=== PATIENT | male | born 1980 | race Caucasian/White ===

== ENCOUNTER 2022-01-19 11:37 | Emergency (ER) | payer OTHER, SELFPAY ==
--- NOTE | ~2022-01-19 | XR_ITS ---
XR elbow RT min 3V DATE: 01/19/2022 12:57 INDICATION: Pain. No injury. TECHNIQUE: 4 views COMPARISON: None FINDINGS: There is degenerative spurring at the elbow and there are some chronic degenerative ossicle s, consistent with osteoarthritis. No recent fracture or dislocation is detected. Posterior fat pad appears elevated which suggests elbo w joint effusion. IMPRESSION: Osteoarthritis and elbow joint effusion Reviewed, dictated and finalized at location A. BOND AGENT
--- NOTE | ~2022-01-19 | XR_ITS ---
EXAMINATION: XR md joint inject/asp w image DATE: 01/19/2022 15:23 INDICATION: Right elbow swelling and pain. TECHNIQUE: A time-out was performed to verify the patient's name, date of , and procedure to b e performed. The procedure including the risks, benefits, and alternatives was discussed with the pat ient. Risks discussed included bleeding and infection. The patient understood the risks and agreed to proceed. The skin overlying the right elbow joint was prepped and draped in usual sterile fashion. Anesthetic was administered with 1% lidocaine subcutaneously. An 18 G needle was advanced under flu oroscopic guidance into the joint. Fluid was aspirated. The needle was removed and the entry site was cleaned and dressed. There were no immediate complications. Fluoroscopy exposure time was 0.1 minut es. The total number of images was 1. FINDINGS: Real-time fluoroscopy demonstrates the needle in the right elbow joint. IMPRESSION: 1. Fluoroscopy guided right elbow joint aspiration yielding 13 mL yellow fluid. Reviewed, dictated and finalized at location A. OR CONTROL SPECIALIST
[2022-01-19 11:45] VITALS: BP 151/98; PULSE 76; RESP 18; TEMP 37; O2SAT 97
--- NOTE | 2022-01-19 12:22 | WC.ED.TRAUMA ---
HPI - Trauma General Chief Complaint: Extremity Injury, Upper Stated Complaint: elbow pain Time Seen by Provider: 01/19/22 12:18 History of Present Illness HPI narrative: Patient is a 41-year-old male with no past medical history here for evaluation of atraumatic right elbow pain and swelling over the past day. Patient states that his pain developed gradually yesterday, but worsened today. Attempted ibuprofen without relief of his symptoms. He was seen in urgent care today and was sent to the ED due to severity of pain. No fevers, chills, nausea, vomiting. Patient tells me he fractured his right elbow when he was a child but did not have surgical repair. Related Data Allergies Allergy/AdvReac Type Severity Reaction Status Date / Time No Known Allergies Allergy Unknown Verified 03/06/14 16:16 Review of Systems Review of Systems: Gen: Denies fevers or chills Eyes: Denies eye pain or visual change ENT: Denies congestion Respiratory: Denies shortness of breath or cough CV: Denies chest pain or palpitations GI: Denies abdominal pain nausea, emesis or diarrhea denies burning, urgency, frequency or hematuria Musculoskeletal: Reports right elbow pain. Neuro: Denies numbness, tingling, weakness or focal weakness Skin: Denies rash Except as documented, all other systems reviewed and negative Exam Narrative: APPEARANCE: Uncomfortable appearing, tearful Head: Normocephalic and atraumatic. EYES: PERRLA/EOMI, conjunctivae clear NOSE: No nasal drainage EARS: External ear normal in appearance THROAT: Oropharynx is clear. Mucous membranes are moist. NECK: Supple. No adenopathy, no masses. RESPIRATORY: Airway patent, respirations nonlabored. Clear to auscultation bilaterally, no rales, rhonchi, wheezing. CARDIOVASCULAR: Regular rate and rhythm without murmurs, rubs, or gallops. ABDOMINAL: Normoactive bowel sounds. Soft, nontender, nondistended. No rebound tenderness or guarding. MUSCULOSKELETAL: Holding right elbow in flexion and internal rotation. Mild swelling noted over the olecranon. Reports pain with any range of motion. NEURO: Normal speech. No focal neurologic deficits. SKIN: No break in skin integrity over elbow. Skin is warm and dry. No rashes. PSYCHIATRIC: Normal affect/mood. Course Vital Signs Vital signs: Vital Signs Temperature 98.6 F 01/19/22 11:45 Pulse Rate 76 01/19/22 11:45 Respiratory Rate 18 01/19/22 11:45 Blood Pressure 151/98 H 01/19/22 11:45 Pulse Oximetry 97 01/19/22 11:45 Oxygen Delivery Room Air 01/19/22 11:45 Temperature 98.6 F 01/19/22 11:45 Pulse Rate 76 01/19/22 11:45 Respiratory Rate 18 01/19/22 11:45 Blood Pressure 151/98 H 01/19/22 11:45 Pulse Oximetry 97 01/19/22 11:45 Oxygen Delivery Room Air 01/19/22 11:45 MDM - Trauma MDM Narrative Medical decision making narrative: 41-year-old male here for evaluation of atraumatic left elbow pain over the past day and a half. Sent from urgent care due to severity of pain. Patient arrives tearful, uncomfortable appearing, evidence of swelling of the elbow but no overlying warmth or redness. There is evidence of arthritis and joint effusion of the x-ray. This was tapped by Dr. Khan, synovial fluid reveals yellow turbid fluid, with a nucleated cell count of 8621, neutrophil 95%. No synovial crystals seen, gram stain is negative. he has no leukocytosis in blood work. His CRP is slightly elevated at 2.2, his ESR is normal at 15. Spoke with Dr. Gifford, ortho, regarding patient, reviewed imaging and cell count analysis. Feel this is unlikely to be septic arthritis given location in elbow, lack of risk factors, lack of systemic symptoms, and near normal inflammatory markers. Suspect gout or osteoarthritis as etiology of the effusion. We will plan to treat as gout with Medrol Dosepak and pain meds at home, although patient was given strict return precautions to come back to the ER if he develops a fever or ot
[2022-01-19] MEDS: HYDROcodone/acetaminophen (*CRX) 5-325 MG TABLET 1 TAB PO (12:39)
[2022-01-19 12:44] LABS: Basophils Absolute Auto 0.1 K/mm3 (0.0-0.1); Basophils Percent Auto 0.5 % (0.2-1.2); Eosinophils Absolute Auto 0.2 K/mm3 (0-0.3); Eosinophils Percent Auto 1.6 % (0-4.4); Hematocrit 44.1 % (42.0-52.0); Hemoglobin 14.7 g/dL (14.0-18.0); Immature Granulocyte Absolute 0.03 K/mm3 (0.00-0.031); Immature Granulocyte Percent A 0.3 % (0-0.5); Lymphocytes Absolute Auto 1.14 K/mm3 (0.9-3.2); Lymphocytes Percent Auto 11.5 % (18.3-44.2); Mean Corpuscular HGB Conc 33.3 g/dl (32-36); Mean Corpuscular Hemoglobin 32.1 pg (26-34); Mean Corpuscular Volume 96.3 fl (80-100); Mean Platelet Volume 10.9 fl (7.4-10.4); Monocytes Absolute Auto 0.8 K/mm3 (0.1-0.6); Monocytes Percent Auto 7.7 % (2.6-8.5); Neutrophils Absolute Auto 7.8 K/mm3 (1.3-6.7); Neutrophils Percent Auto 78.4 % (45.5-73.1); Platelet Count Result 176 k/mm3 (150-375); Red Blood Count 4.58 M/mm3 (4.6-6.20); Red Cell Distribution Width 14.5 % (11.5-14.5); White Blood Count 9.9 K/mm3 (4.5-10.0)
[2022-01-19 13:04] LABS: Alanine Aminotransferase 96 U/L (6-50); Albumin Level 4.6 g/dL (3.5-5.1); Alkaline Phosphatase 102 U/L (38-126); Anion Gap 14 mmol/L (8-16); Aspartate Amino Transferase 88 U/L (17-59); Bilirubin,Total 0.9 mg/dL (0.2-1.3); Blood Urea Nitrogen 8 mg/dL (9-20); CRP 2.2 mg/dL (<1.0); Calcium 8.8 mg/dL (8.4-10.2); Carbon Dioxide 25 mmol/L (22-30); Chloride 99 mmol/L (98-107); Estimated CRCL calculation 142 ml/min; Estimated Glomerular Filt Rate > 60; Glucose 88 mg/dL (65-110); Potassium 4.3 mmol/L (3.4-5.0); Sodium 138 mmol/L (137-145)
[2022-01-19 13:46] LABS: Erythrocyte Sedimentation Rate 15 mm/hr (0-20)
[2022-01-19] MEDS: fentaNYL CITRATE INJ (*CRX) 100 MCG/2 ML VIAL 50 MCG IV PUSH (14:53)
[2022-01-19 17:22] LABS: Appearance Synovial Fluid Turbid (Clear); Color Synovial Fluid Yellow (Colorless); Lymphocytes Synovial Fluid 1 %; Monocytes Synovial Fluid 4 %; Neutrophils Synovial Fluid 95 % (0-25); Nucleated Cell Synovial Fluid 8621 /uL (0-200); Source Synovial Fluid Synovial fluid
[2022-01-19 17:28] LABS: Crystals Synovial Fluid None Seen (None Seen)
[2022-01-19] MEDS: ONDANSETRON INJ 4 MG/2 ML VIAL IV PUSH (17:50)
[2022-01-19] MEDS: MAG HYDROX/AL HYDROX/SIMETH 30 ML UDC PO (18:06)
== END 2022-01-19 18:09 | disposition home or self-care (01) ==
PROVIDERS: Physician Assistant; Emergency Provider Emergency Medicine
DX: M25.421 Effusion, right elbow (principal)
CPT/HCPCS: 20605; 36415; 73080; 77002; 80053; 85025; 85652; 86140; 87070; 87075; 87205; 89051; 89060; 96374; 96375; 99284; A4565; A9270; J2405; J3010

== ENCOUNTER 2024-07-20 15:26 | Emergency (ER) | payer OTHER, SELFPAY ==
[2024-07-20 15:30] VITALS: BP 134/88; PULSE 89; RESP 17; TEMP 36.8; O2SAT 97
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
--- NOTE | 2024-07-20 17:12 | ED_ITS ---
HPI - Alcohol General Chief Complaint: Alcohol Stated Complaint: Wanting help with ETOH, Anxiety-poss placement Time Seen by Provider: 07/20/24 15:46 History of Present Illness HPI narrative: Patient has history of alcohol use disorder and has been wanting to quit but cannot stop feeling anxious when he tries to stop drinking, last drink was 2 hours prior to arrival here. Looking to detox. Does not have any complaints right now, denies suicidal ideation. Related Data Home Medications Medication Instructions Recorded Confirmed Last Taken Type methadone 10 mg tablet 27 mg PO DAILY 12/16/23 12/16/23 Unknown History Allergies Allergy/AdvReac Type Severity Reaction Status Date / Time No Known Allergies Allergy Unknown Verified 07/20/24 15:58 Review of Systems Review of Systems: All systems reviewed & are unremarkable except as noted in HPI and below PMFSH Family History Family History Father Alcoholism Hypertension Mother Afib Brain aneurysm Grandparent Alcoholism Heart attack Social History Social History Smoking status: Former smoker Tobacco type: e-cigarettes/vaping Alcohol intake: current Drinks per week: 20 Substance use: never Substance use type: painkillers Gender identity (if verbalized by the patient): Male Exam Narrative: EXAMINATION OF ORGAN SYSTEMS/BODY AREAS: Constitutional: Vital signs per nursing GENERAL: Does appear intoxicated and smells the alcohol. HEAD: Normal with no signs of head trauma. EYES: EOMI, conjunctiva normal ENT: Hearing grossly intact LUNGS: Nonlabored breathing. HEART: [Regular rate and rhythm] ABD: [Soft], [nontender to palpation] EXT: Normal range of motion SKIN: [No rashes or lesions.] NEURO: [Alert and oriented x 3. Speaking with clear speech] PSYCH: Labile affect Course Vital Signs Vital signs: Vital Signs Temperature 98.2 F 07/20/24 15:30 Pulse Rate 89 07/20/24 15:30 Respiratory Rate 17 07/20/24 15:30 Blood Pressure 134/88 07/20/24 15:30 Pulse Oximetry 97 07/20/24 15:30 Oxygen Delivery Room Air 07/20/24 15:30 Temperature 98.2 F 07/20/24 15:30 Pulse Rate 89 07/20/24 17:37 Respiratory Rate 20 05/15/25 17:37 Blood Pressure 131/69 07/20/24 17:37 Pulse Oximetry 100 07/20/24 17:37 Oxygen Delivery Room Air 07/20/24 15:30 MDM - Alcohol MDM Narrative Medical decision making narrative: Patient presenting here requesting help to stop drinking alcohol. He drinks constantly from waking up to bed, and when he does and he feels extremely anxious, he states he feels like his legs are throbbing with waves of need to drink alcohol. On exam he has clear speech, ambulating with steady gait, though he does smell strongly of alcohol. I did explain that unfortunately we are not a detox facility, but I did offer prescription for Librium taper to help him with trying to drinking alcohol, his mother is with him and she states that he is staying with her and she does seem to be a responsible adult who feels comfortable with helping him with the taper; I did explain to them both have to take the Librium safely over the next few days. I did also give strict return precautions and follow-up for mental health/detox services and resources. One dose of Librium given before discharge. Discharge Plan Discharge Clinical Impression: Acute anxiety, Alcohol use disorder Patient Disposition: Home Condition: Stable Instructions: Abuse of Alcohol (ED), Anxiety (ED) Additional Instructions: Please follow-up with your psychiatrist, use mental health resources if you have any thoughts of hurting herself or anyone else, or if you are not able to safely stop drinking alcohol, or anything else concerning, please come back to the hospital. Patient Language: Polish Prescriptions: New chlordiazepoxide HCl 25 mg capsule 25 mg PO Q6-12H PRN (Reason: alcohol withdrawal) Qty: 30 0RF Rx Instructions: Take 1 tabs PO q2-4 hours on day 1; 1 tab PO q4h on day 2; 1 tab PO q6h on day 3; 1 tab PO q12 on day 4; 1 tab at night on day 5. No Action methadone 10 mg tablet 27 mg PO DAILY Follow-up/Referrals: [facility] [Outside] - 1 Day Jane Acevedo APRN [Primary Care Provider] -
[2024-07-20] MEDS: chlordiazePOXIDE (*CRX) 25 MG CAPSULE PO (17:28)
[2024-07-20 17:37] VITALS: BP 131/69; PULSE 89; RESP 20; O2SAT 100
== END 2024-07-20 17:39 | disposition home or self-care (01) ==
PROVIDERS: Emergency Provider Emergency Medicine; PCP Nurse Practitioner Family
DX: F10.980 Alcohol use, unspecified with alcohol-induced anxiety disorder (principal); F41.9 Anxiety disorder, unspecified; Y90.9 Presence of alcohol in blood, level not specified; Z87.891 Personal history of nicotine dependence
CPT/HCPCS: 99283; A9270

== ENCOUNTER 2024-07-21 17:17 | Emergency (ER) | payer OTHER, SELFPAY ==
--- OUTSIDE RECORDS SUMMARY | 2024-07-21 17:20 | XMS_ITS | Data Portability ---
Author Organization [place] - [employer], Main Office Address [address] [place] [address] Assessment Encounter Date Assessment Date Assessment LastModified [...] 5/5 rotator cuff strength. Negative Chandan. Positive Hays's which causes him significant pain. Positive speed [...] referral - EVAL AND TREAT 2023 [email or web address] [facility], [address], [place], [address], 16:47:48 physical therapist referral - please contact patient to schedule 2023 024 ATHENAFAX [facility] [place] [facility], [address], [place], [address], 12:00:53 Procedures injection/ aspiration joint/burs a (PROC) 2023 024 [email or web address] In-Office Order, Internal Use Only DO Not Attach Compendium DO Not Attach Compendium, Do Not Delete/merge, 295[address] 10:17:24 Surgeries None recorded. Imaging XR, shoulder, 2 or more view 2023 024 [email or web address] [facility] [place], [address], [place], [address], 4 08:26:09 XR, knee, 4 or more view 2023 024 STANISLAW [facility] [place], [address], [place], [address], 4 00:17:25 Medication Orders Mobic 15 mg tablet [address] [facility]61780, [address], [id number], 4 16:47:48 bupivacain e HCl 0.5 % (5 mg/mL) injection solution [address] [facility]96425, [address], [id number], 4 18:27:54 Kenalog 10 mg/mL suspension for injection [address] [facility]68497, [address], [id number], 4 18:27:54 meloxicam 15 mg tablet [address] [facility]64982, [address], [id number], 4 18:27:54 Patient TargetsNo targets recorded. Patient [...] more view No observ ation record ed. [email or web address] [facility] [place] [address], [place], [address], 08/04/2023 09:51:36 10/13/19 24 XR, shoul lyla, 2 or more view No observ ation record ed. [email or web address] [facility] [place] [address], [place], [address], 10/13/2023 14:06:50 Result Notes None recorded. Problems Name Problem SNOMED Code Status Onset Date Resolution Date Notes Provider Name and Address Organization Details Recorded Time Pain of right knee joint 8492590650624 00 Active 2023 TOBIAS Lara, [employer] [facility] 4 09:51:17 Derangement of right knee 8137783714507 9109 Active 2023 TOBIAS Lara, [employer] [facility] 4 14:01:50 Osteoarthri tis of right knee joint 7162554018180 00 Active 2023 TOBIAS Lara, [employer] [facility] 4 14:01:56 Pain of left shoulder joint 2056600938591 9109 Active 2023 TOBIAS Lara, [facility] 4 14:06:57 Problem Notes None recorded. Procedures Surgical History Date Name Laterality Status Provider Name and Address Organization Details Recorded Time Ortho - Cortisone Injection completed Liban Moore MD [address] [place] [address], [address], [employer] 08/04/2023 18:00:34 Imaging Results Imaging Date Name Status LastModified by Organiz ation Details LastModified Time 08/04/2023 XR, knee, 4 or more view completed [facility] [place] [address], [place], [address], 08/04/2023 09:51:36 10/13/2023 XR, shoulder, 2 or more view completed [facility] [place] [address], [place], [address], 10/13/2023 14:06:50 Procedure Notes None recorded. Medical [...] 10 mg by injection route. 2023 active [facility]: 0003- 0494- 20 Not Available Not Available [...] Updated DateTime 08/04/2023 177.8 cm 35.9 kg/m2 005017.09 g 5 TOBIAS Lara [employer] 08/04/2023 09:49:54 Date Recorded Body height Body mass index (BMI) Body weight Pain severity - 0-10 verbal numeric rating [Score] - Reported Provider Name and Address Organization Details Last Updated DateTime 10/13/2023 177.8 cm 34.4 kg/m2 883142.17 g 5 TOBIAS Lara [employer] [facility] 10/13/2023 14:01:34 Social History Question Answer Notes LastModified by [employer] Details LastModified Time Tobacco Smoking Status Never Smoker TOBIAS Lara null, [employer] [facility] 08/04/2023 09:50:55 What Is Your Level Of Caffeine Consumption? Moderate [email or web address] Information not available 08/04/2023 What Was The Date Of Your Most Recent Tobacco Screening? 08/04/2023 [email or web address] Information not available 08/04/2023 Sex: Unknown Functional Status Question Answer Note LastModified by [employer] Details LastModified Time Do you use any illicit or recreational drugs? No [email or web address] Information not available 08/04/2023 What is your level of alcohol consumption? None [email or web address] Information not available 08/04/2023 Mental Status None recorded. Family History Relationship Description Onset Age of this Age Resolved Age Notes LastModified by Organization Details LastModified Time Father No current problems or disability [email or web address] Not available 08/03 09:50:30 Mother No current problems or disability [email or web address] Not available 08/03 09:50:30 Medical History No medical history recorded. Past Encounters Encounter ID Performer Location Encounter Start Date Encounter Closed Date Diagnosis/Indication Diagnosis SNOMED-CT Code Diagnosis ICD10 Code Diagnosis Note [id number] MD JAMES [facility] [place] [address] [place] [address] 08/04/2023 09:34:50 08/04/2023 10:39:41 Pain of right knee joint 8870962886 41209 M25.202 [id number] MD JAMES [facility] [place] [address] [place] [address] 10/13/2023 13:58:14 10/13/2023 14:51:27 Pain of left shoulder joint 7243393996 6240284 M25.512 Health Concerns Section Related Observation LastModified by Organization Detai ls LastModified Time None Recorded Concern Status LastModified by Organization Details LastModified Time None Recorded Advance Directives Directive None Recorded Payers Encounter Date Sequence Insurance Name Policy Number Policy Botello Covered Member ID Botello Member ID Guarantor Name 08/04/2023 1 [facility] (POS II) [id number] Tj Doss [id number] Tj Doss 10/13/2023 1 [facility] ([place]) [id number] Tj Doss [id number] Tj Doss
--- NOTE | 2024-07-21 17:52 | PC.NURSE ---
1730--patient asked to move off intake bench seat and have a seat in main waiting room, patient was stretched out over the bench. Patient asked several times to move and he refused-making snide comments. Patient informed that security would be called-patients said go ahead . call placed to security. when they arrived patient got up and walked out of ED-refused to talk to security or ED staff. Patient witnessed walking off property per security.
--- NOTE | 2024-07-21 18:01 | PC.NURSE ---
1950--no answer to name call for triage VS
== END 2024-07-21 19:16 | disposition left against medical advice (07) ==
PROVIDERS: PCP Nurse Practitioner Family
DX: F41.9 Anxiety disorder, unspecified (principal); F10.90 Alcohol use, unspecified, uncomplicated; Z87.891 Personal history of nicotine dependence
CPT/HCPCS: 99199

== ENCOUNTER 2024-09-26 16:56 | Emergency (ER) | payer OTHER, SELFPAY ==
[2024-09-26 16:48] VITALS: BP 148/94; PULSE 111; RESP 18; TEMP 36.6; O2SAT 92
--- OUTSIDE RECORDS SUMMARY | 2024-09-26 17:11 | XMS_ITS | Data Portability ---
Author Organization [place] - [facility] [employer], Main Office Address [address] [place] [address] Assessment Encounter Date Assessment Date Assessment LastModified [...] 5/5 rotator cuff strength. Negative Chandan. Positive Towns's which causes him significant pain. Positive speed [...] therapist referral - EVAL AND TREAT 2023 024 [email or web address] [facility] [place] [facility], [address], [place], [address], 16:47:48 physical therapist referral - please contact patient to schedule 2023 024 ATHENAFAX [facility] [place] [facility], [address], [place], [address], 12:00:53 Procedures injection/ aspiration joint/burs a (PROC) 2023 024 [email or web address] In-Office Order, Internal Use Only DO Not Attach Compendium DO Not Attach Compendium, Do Not Delete/merge, [address] 10:17:24 Surgeries None recorded. Imaging XR, shoulder, 2 or more view 2023 024 [email or web address] [facility] [place], [address], [place], [address], 4 08:26:09 XR, knee, 4 or more view 2023 024 STANISLAW [facility] [place], [address], [place], [address], 4 00:17:25 Medication Orders Mobic 15 mg tablet [address] [facility]85682, [address], [id number], 4 16:47:48 bupivacain e HCl 0.5 % (5 mg/mL) injection solution [address] [facility]41199, [address], [id number], 4 18:27:54 Kenalog 10 mg/mL suspension for injection [address] [facility]10302, [address], [id number], 4 18:27:54 meloxicam 15 mg tablet [address] [facility]39253, [address], [id number], 4 18:27:54 Patient TargetsNo targets recorded. Patient [...] more view No observ ation record ed. [email or web address] [facility] [place] [address], [place], [address], 08/04/2023 09:51:36 10/13/19 24 XR, shoul lyla, 2 or more view No observ ation record ed. [email or web address] [facility] [place] [address], [place], [address], 10/13/2023 14:06:50 Result Notes None recorded. Problems Name Problem SNOMED Code Status Onset Date Resolution Date Notes Provider Name and Address Organization Details Recorded Time Pain of right knee joint 2876292835023 00 Active 2023 TOBIAS Lara, [facility] [employer] [facility] 4 09:51:17 Derangement of right knee 1694942512531 9109 Active 2023 TOBIAS Lara, [facility] [employer] [facility] 4 14:01:50 Osteoarthri tis of right knee joint 4106717294867 00 Active 2023 TOBIAS Lara, [facility] [employer] [facility] 4 14:01:56 Pain of left shoulder joint 8875246600039 9109 Active 2023 TOBIAS Lara, [facility] [employer] [facility] 4 14:06:57 Problem Notes None recorded. Procedures Surgical History Date Name Laterality Status Provider Name and Address Organization Details Recorded Time 4 Ortho - Cortisone Injection completed Liban Moore MD [address] [place] [address], [address], [address], [facility] [employer] 08/04/2023 18:00:34 Imaging Results None recorded. Procedure Notes None recorded. Medical Equipment None [...] 10 mg by injection route. 2023 active [facility]: 0003- 0494- 20 Not Available Not Available Not Available methylpredn isolone 4 mg tablets in a dose pack FOLLOW PACKAGE DIRECTION S 08/03 completed Not Available Not Available Not Available Vitals Date Recorded Body height Body mass index (BMI) Body weight Provider Name and Address Organization Details Last Updated DateTime 08/04/2023 177.8 cm 35.9 kg/m2 143327.09 [email or web address] TOBIAS Lara [employer] [facility] [employer] 08/04/2023 09:49:41 Date Recorded Body height Body mass index (BMI) Body weight Provider Name and Address Organization Details Last Updated DateTime 10/13/2023 177.8 cm 34.4 kg/m2 394057.17 TOBIAS [place] [employer] [facility] [employer] 10/13/2023 14:01:25 Social History Question Answer Notes LastModified by Organizat ion Details LastModified Time Tobacco Smoking Status Never Smoker TOBIAS Lara [facility] [employer] [facility] 08/04/2023 09:50:55 What Is Your Level Of Caffeine Consumption? Moderate [email or web address] Information not available 08/04/2023 What Was The Date Of Your Most Recent Tobacco Screening? 08/04/2023 [email or web address] Information not available 08/04/2023 Sex: Unknown Functional Status Question Answer Note LastModified by Organizat ion Details LastModified Time Do you use any illicit or recreational drugs? No Information not available 08/04/2023 What is your level of alcohol consumption? None [email or web address] Information not available 08/04/2023 Mental Status None recorded. Family History Relationship Description Onset Age of this Age Resolved Age Notes LastModified by Organization Details LastModified Time Father No current problems or disability Not available 08/03 09:50:30 Mother No current problems or disability [email or web address] Not available 08/03 09:50:30 Medical History No medical history recorded. Past Encounters Encounter ID Performer Location Encounter Start Date Encounter Closed Date Diagnosis/Indication Diagnosis SNOMED-CT Code Diagnosis ICD10 Code Diagnosis Note [id number] Liban Moore MD [facility] [place] [address] [place] [address] 08/04/2023 09:34:50 08/04/2023 10:39:41 Pain of right knee joint 2318812368 77912 M25.695 [id number] Liban Moore MD [facility] [place] [address] [place] [address] 10/13/2023 13:58:14 10/13/2023 14:51:27 Pain of left shoulder joint 6504392662 1410129 M25.512 Health Concerns Section Related Observation LastModified by Organization Detai ls LastModified Time None Recorded Concern Status LastModified by Organization Details LastModified Time None Recorded Advance Directives Directive None Recorded Payers Insurance Date Sequence Insurance Name Policy Number Policy Botello Covered Member ID Botello Member ID Guarantor Name 10/15/2023 1 [facility] (POS II) [id number] Tj Doss [id number] Tj Doss
--- OUTSIDE RECORDS SUMMARY | 2024-09-26 17:11 | XMS_ITS ---
Author Organization [facility] Address [address] [place] [address] Care Team Providers Care Housekeeping Attendant Name Role Phone Jane Acevedo APRN Primary Care Provider Karan Woodard Unavailable [phone] Tramaine Velasco Unavailable [phone] REASON FOR VISIT ADHD Follow Up, DENIED UDT Medications Medication SIG (Take, Route, Frequency, Duration) Notes Start Date End Date Status cloNIDine HCl 0.1 MG 1 tablet Orally twice a day; Duration: 30 days As needed 08/23/2024 Active Sertraline HCl 100 MG 1 tablet Orally On ce a day; Duration: 30 days Active hydrOXYzine Pamoate 25 MG 1 capsule at bedtime as needed Orally Once a day; Duration: 30 days Active QUEtiapine Fumarate 50 MG 1 tablet once a day for 2 days, 2 tablets once a day for 28 days Orally; Duration: 30 days 09/18/2024 Active Propranolol HCl 10 MG 1 tablet Orally tw ice a day; Duration: 30 days 09/18/2024 Active Sertraline HCl 25 MG 1 tablet daily x 7 days then 2 tablets daily x 7 days Orally see sign; Duration: 14 days 08/23/2024 Active Abilify 10 MG 0.5 tablet Orally Once a day; Duration: 30 days pt has supply Active Atomoxetine HCl 80 MG 1 capsule in the morning Orally Once a day Active Social History Sex Assigned At : Social History Observation Description Sex Assigned At Male Vital Signs Blood pressure systolic 119 mm Hg 09/19/19 25 Blood pressure diastolic 83 mm Hg 025 Height 70 in 09/18/2024 Weight 189 lbs 09/18/2024 BMI 27.12 kg/m2 09/18/2024 Height-cm 177.8 cm 09/18/2024 Weight-kg 85.73 kg 09/18/2024 Encounters Encounter Location Date Provider [facility] [address] [place] [address] 09/18/2024 Tramaine Velasco Opioid abuse, in remission F11.11 ; CRISTI (generalized anxiety disorder) F41.1 ; 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.05 ; Attention and concentration deficit R41.840 and Major depressive disorder, recurrent severe without psychotic features F33.2 Assessments Encounter Date Diagnosis (ICD Code) Assessment Notes Treatment Notes Treatment Clinical Notes Section Notes 09/18/2024 Opioid abuse, in remission (ICD-10 - F11.11) 09/18/2024 CRISTI (generalized anxiety disorder) (ICD-10 - F41.1) 09/18/2024 Insomnia due to other mental disorder (ICD-10 - F51.05) 09/18/2024 Attention and concentration deficit (ICD-10 - R41.840) 09/18/2024 Major depressive disorder, recurrent severe without psychotic features (ICD-10 - F33.2) 09/18/2024 Other Tj Boyer, adult male with history of substance use disorder, presents with severe anxiety, fatigue, and dizziness after returning to work following a 2-month absence. Generalized Anxiety Disorder with Panic Attacks Assessment: Patient reports persistent, severe anxiety described as a wave over my body, accompanied by irritability, fatigue, and dizziness. Symptoms were exacerbated upon returning to work after a 2-month absence, particularly when climbing ladders. Patient experiences panic attacks with associated breathing difficulties. Recently initiated sertraline has not provided significant relief. Patient resorted to using leftover methadone (25mg for 5 days, one month ago) and alcohol to manage anxiety symptoms, indicating potential for substance use relapse. Current medication regimen, including Abilify, may be contributing to increased anxiety. Plan: - Discontinue Abilify - Start quetiapine 50mg PO at bedtime for 2 nights, then increase to 100mg PO at bedtime - Discontinue clonidine - Start propranolol 10mg PO BID PRN for anxiety - Encourage adequate hydration - Follow up in 3 weeks Attention-Deficit /Hyperactivity Disorder (ADHD) Assessment: Recent ADHD testing (September 01) indicates results consistent with ADHD, characterized by difficulties in response inhibition, maintaining consistent processing speed, and impulsivity as the core issue. However, current anxiety symptoms preclude immediate ADHD-specific treatment. Plan: - Defer ADHD treatment consideration pending improvement of anxiety symptoms - Avoid stimulant medication initiation at this time due to potential exacerbation of anxiety Substance Use Disorder (in remission with recent lapse) Assessment: Patient has a history of substance use disorder, including alcohol and methadone. Recent lapse reported with use of leftover methadone (25mg for 5 days, one month ago) and alcohol to manage anxiety and sleep difficulties. Patient denies current cravings for opiates but expresses a strong desire for anxiety relief. Plan: - Monitor for signs of substance use relapse - Address anxiety symptoms to reduce risk of self-medication Insomnia Assessment: Patient reports difficulty with sleep, which has led to self-medication with alcohol and sleeping pills. Plan: - Initiate quetiapine for dual purpose of anxiety management and sleep improvement the note is transcribed using speech recognition software. It is a reflection of a visit with the patient. It might have some inaccuracy, including medication names and transcribing errors, though efforts have been made to correct them. Plan Of Treatment Medication Medication Name Sig Start Date Stop Date Notes Sertraline HCl 100 MG 1 tablet Orally On ce a day; Duration: 30 days hydrOXYzine Pamoate 25 MG 1 capsule at b edtime as needed Orally Once a day; Duration: 30 days QUEtiapine Fumarate 50 MG 1 tablet once a day for 2 days, 2 tablets once a day for 28 days Orally; Duration: 30 days 09/18/2024 Propranolol HCl 10 MG 1 tablet Orally tw ice a day; Duration: 30 days 09/18/2024 Treatment Notes Assessment Notes Other Tj Boyer, adult male with history of substance use disorder, presents with severe anxiety, fatigue, and dizziness after returning to work following a 2-month absence. Generalized Anxiety Disorder with Panic Attacks Assessment: Patient reports persistent, severe anxiety described as a wave over my body, accompanied by irritability, fatigue, and dizziness. Symptoms were exacerbated upon returning to work after a 2-month absence, particularly when climbing ladders. Patient experiences panic attacks with associated breathing difficulties. Recently initiated sertraline has not provided significant relief. Patient resorted to using leftover methadone (25mg for 5 days, one month ago) and alcohol to manage anxiety symptoms, indicating potential for substance use relapse. Current medication regimen, including Abilify, may be contributing to increased anxiety. Plan: - Discontinue Abilify - Start quetiapine 50mg PO at bedtime for 2 nights, then increase to 100mg PO at bedtime - Discontinue clonidine - Start propranolol 10mg PO BID PRN for anxiety - Encourage adequate hydration - Follow up in 3 weeks Attention-Deficit/Hyperactivity Disorder (ADHD) Assessment: Recent ADHD testing (September 01) indicates results consistent with ADHD, characterized by difficulties in response inhibition, maintaining consistent processing speed, and impulsivity as the core issue. However, current anxiety symptoms preclude immediate ADHD-specific treatment. Plan: - Defer ADHD treatment consideration pending improvement of anxiety symptoms - Avoid stimulant medication initiation at this time due to potential exacerbation of anxiety Substance Use Disorder (in remission with recent lapse) Assessment: Patient has a history of substance use disorder, including alcohol and methadone. Recent lapse reported with use of leftover methadone (25mg for 5 days, one month ago) and alcohol to manage anxiety and sleep difficulties. Patient denies current cravings for opiates but expresses a strong desire for anxiety relief. Plan: - Monitor for signs of substance use relapse - Address anxiety symptoms to reduce risk of self-medication Insomnia Assessment: Patient reports difficulty with sleep, which has led to self-medication with alcohol and sleeping pills. Plan: - Initiate quetiapine for dual purpose of anxiety management and sleep improvement the note is transcribed using speech recognition software. It is a reflection of a visit with the patient. It might have some inaccuracy, including medication names and transcribing errors, though efforts have been made to correct them. Next Appt Details Follow Up: 3 Weeks, Reason: f/u depression, anxiety, adhd Progress Notes * Tj BOYER ADOB:1980 (44 yo M)Acc No.[id number]:09/18/2024 Patient: Tj CARTER Provider: AVANI VELAZQUEZ :1980 A ge:44 Y S ex:Male Date:09/18/2024 Address:[address] [place] [address], [facility] Pcp:Jane Acevedo APRN Subjective: * Chief Complaints: * 1 . ADHD Follow Up. 2. DENIED UDT. * HPI: H istory of Presenting Problem: Chief Complaint Anxiety hard to control, irritability, fatigue and dizziness when working, difficulty sleeping, panic attacks History of Present Illness Tj Boyer presents with worsening anxiety and difficulty controlling it, describing it as a wave over my body. He recently returned to work after a 2- month absence and reports experiencing significant fatigue and dizziness, particularly when climbing ladders. Mr. Boyer states his anxiety has been particularly severe since returning to work. He experiences physical symptoms including leg shaking, which he attributes to anxious thoughts. The patient reports longstanding issues with anger and irritability. Sleep has been difficult, and he notes no improvement in anxiety since starting sertraline. The patient admits to recent substance use to manage his symptoms. Approximately one month ago, he took leftover methadone (25 mg for 5 days) and consumed beer along with sleeping pills due to unbearable anxiety and sleep difficulties. He denies current cravings for opiates but expresses a strong desire for his anxiety to subside. Mr. Boyer describes experiencing panic attacks and breathing difficulties, particularly when climbing ladders at work. He reports feeling dizzy upon reaching the top of the ladder. The patient acknowledges poor hydration, stating he didn't drink any water during his workday. Regarding his current medication regimen, Mr. Boyer reports possibly feeling more anxious since starting Abilify, which he has been taking at night. He also mentions using clonidine, stating he took like 4 of them. The patient underwent an ADHD test on September 01, with results indicating difficulties consistent with ADHD, particularly in response inhibition and maintaining consistent processing speed. Social History The patient recently returned to work after a two-month absence. He reports experiencing significant anxiety, particularly when climbing ladders at work. The patient has a history of substance use, including recent use of leftover methadone (25 mg for 5 days, about a month ago) and alcohol (beer) to cope with anxiety. He also mentions taking sleeping pills with beer to help with sleep difficulties. The patient denies current cravings for opiates but expresses a strong desire for relief from anxiety. He acknowledges poor hydration, reporting no water intake during his workday. Medical History The patient has a history of anxiety and panic attacks, which have been longstanding issues. He also has a documented history of substance use, including alcohol and methadone. Recently, the patient was diagnosed with Attention- Deficit/Hyperactivity Disorder (ADHD), characterized by difficulties in response inhibition, maintaining consistent processing speed, and impulsivity as the core issue. The patient reports experiencing irritability for most of his life. Medications and Supplements - Sertraline - No noticeable reduction in anxiety. May be reducing overthinking. - Abilify - Taken at night. Patient felt a little more anxious after taking it. - Clonidine - Patient took 4 tablets. - Methadone 25 mg - Taken for 5 days about a month ago due to anxiety. - Sleeping pills - Taken with beer to help with sleep. Review of Systems The patient reports significant fatigue and exhaustion, particularly after returning to work. He experiences dizziness when climbing ladders and describes severe anxiety manifesting as a wave over my body. Neurologically, the patient notes leg shaking and difficulty controlling his thoughts. Cardiovascular symptoms include panic attacks. Respiratory issues are evident, with the patient reporting difficulty breathing while climbing. Sleep disturbances are also present. Psychiatrically, the patient describes long-standing irritability and anger, as well as ongoing anxiety and panic attacks. He denies any current cravings for opiates. P ast Psychiatric Medications: fluoxetine, methadone, buspirone [facility] detox from Methadone and alcohol. C ontributing Factors: He is a teller for 26 years. 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 * Medical History: P ast Psychiatric History: Anxiety Disorder,Panic Disorder,Major Depressive Episode, abdominal aortic aneurysm: No, atrial fibrillation: No, chronic fatigue syndrome: Yes, essential tremor: No, hyperlipidemia: No, hypertension: No, Parkinson's disease: No, restless leg syndrome: Yes, stroke: No, subdural hematoma: No, type 1 diabetes mellitus: No, type 2 diabetes mellitus: No, vitamin B12 deficiency: No, vitamin D deficiency: No. * Medications: T aking hydrOXYzine Pamoate 25 MG Capsule 1 capsule at bedtime as needed Orally Once a day , Taking Atomoxetine HCl 80 MG Capsule 1 capsule in the morning Orally Once a day , Taking Abilify 10 MG Tablet 0.5 tablet Orally Once a day , Notes to Pharmacist: pt has supply, Taking Sertraline HCl 25 MG Tablet 1 tablet daily x 7 days then 2 tablets daily x 7 days Orally see sign , Taking Sertraline HCl 100 MG Tablet 1 tablet Orally Once a day , Taking cloNIDine HCl 0.1 MG Tablet 1 tablet Orally twice a day As needed, Medication List reviewed and reconciled with the patient Objective: * Vitals: B P:119/83mm Hg, Wt:189lbs, Wt-k.73 kg, Ht: 70 in, Ht-cm: 177.8 cm, BMI:27.12Index, Body Surface Area: 2.06. * Examination: P sychiatry: Appearance: w ell-groomed, well-nourished, tattoos to arm, hand. Affect / mood: a ppropriate, full range. Attention: g ood. Attitude: c ooperative. Suicidal ideation: n one. Memory status: n o impairment noted. Degree of awareness of surroundings: w ithin normal limits.? Delusions: n o. Hallucinations: n o. Insight: g ood. Intellectual functioning: n o impairment noted. Judgement: g ood. Orientation: a wake, alert and oriented x 3. Perceptual disorders: n o perceptual disorder noted. Psychomotor activity: w ithin normal range. Speech / language: a ppropriate pitch/modulation, clear and coherent, normal rate, volume, and articulation (RVR), proper grammar used. Thought content: a ppropriate. Thought process: i ntact. e ar ringing. G eneral Examination: M ental Status Examination The patient presents with significant anxiety, describing it as a wave over my body. He reports feeling irritated and fatigued, particularly after returning to work following a two-month absence. The patient's mood is described as not good, with a history of chronic irritability. He experiences physical manifestations of anxiety, including leg shaking and dizziness when climbing ladders. Thought content reveals preoccupations with anxiety symptoms and their impact on daily functioning. The patient's thought process appears generally linear and goal-directed, as evidenced by his ability to describe his symptoms and respond appropriately to questions. Cognitively, he demonstrates awareness of his surroundings and can engage in conversation, suggesting intact orientation and attention. Insight appears fair, as the patient recognizes his anxiety and its effects on his life, actively seeking treatment. Judgment is somewhat impaired, as evidenced by recent use of leftover methadone and alcohol to self-medicate anxiety and sleep difficulties. Laboratory, Imaging, and Diagnostic Test Results An ADHD test was conducted on September 01. The results were consistent with ADHD, characterized by difficulties in response inhibition and maintaining consistent processing speed. The test also indicated that impulsivity is the core issue. Rating Scales An ADHD test was administered on September 01. The results were consistent with ADHD, characterized by difficulties in response inhibition and maintaining consistent processing speed. The test indicated that impulsivity is the core issue. Assessment: * Assessment: 1. O pioid abuse, in remission - F11.11 2 . G AD (generalized anxiety disorder) - F41.1 3 . I nsomnia due to other mental disorder - F51.05 ?4. A ttention and concentration deficit - R41.840 5 . M ajor depressive disorder, recurrent severe without psychotic features - F33.2 Plan: * Treatment: 2. M ajor depressive disorder, recurrent severe without psychotic features Refill Sertraline HCl Tablet, 100 MG, 1 tablet, Orally, Once a day, 30 days, 30, Refills 1; S tart QUEtiapine Fumarate Tablet, 50 MG, 1 tablet once a day for 2 days, 2 tablets once a day for 28 days, Orally, 30 days, 58 tablet, Refills 0. 3. O thers Notes: Tj Boyer, adult male with history of substance use disorder, presents with severe anxiety, fatigue, and dizziness after returning to work following a 2-month absence. Generalized Anxiety Disorder with Panic Attacks Assessment: Patient reports persistent, severe anxiety described as a wave over my body, accompanied by irritability, fatigue, and dizziness. Symptoms were exacerbated upon returning to work after a 2-month absence, particularly when climbing ladders. Patient experiences panic attacks with associated breathing difficulties. Recently initiated sertraline has not provided significant relief. Patient resorted to using leftover methadone (25mg for 5 days, one month ago) and alcohol to manage anxiety symptoms, indicating potential for substance use relapse. Current medication regimen, including Abilify, may be contributing to increased anxiety. Plan: - Discontinue Abilify - Start quetiapine 50mg PO at bedtime for 2 nights, then increase to 100mg PO at bedtime - Discontinue clonidine - Start propranolol 10mg PO BID PRN for anxiety - Encourage adequate hydration - Follow up in 3 weeks Attention-Deficit/Hyperactivity Disorder (ADHD) Assessment: Recent ADHD testing (September 01) indicates results consistent with ADHD, characterized by difficulties in response inhibition, maintaining consistent processing speed, and impulsivity as the core issue. However, current anxiety symptoms preclude immediate ADHD-specific treatment. Plan: - Defer ADHD treatment consideration pending improvement of anxiety symptoms - Avoid stimulant medication initiation at this time due to potential exacerbation of anxiety Substance Use Disorder (in remission with recent lapse) Assessment: Patient has a history of substance use disorder, including alcohol and methadone. Recent lapse reported with use of leftover methadone (25mg for 5 days, one month ago) and alcohol to manage anxiety and sleep difficulties. Patient denies current cravings for opiates but expresses a strong desire for anxiety relief. Plan: - Monitor for signs of substance use relapse - Address anxiety symptoms to reduce risk of self-medication Insomnia Assessment: Patient reports difficulty with sleep, which has led to self-medication with alcohol and sleeping pills. Plan: - Initiate quetiapine for dual purpose of anxiety management and sleep improvement the note is transcribed using speech recognition software. It is a reflection of a visit with the patient. It might have some inaccuracy, including medication names and transcribing errors, though efforts have been made to correct them. * Follow Up: 3 Weeks (Reason: f/u depression, anxiety, adhd) * Billing Information: * Visit Code: [id number] OFFICE OUTPATIENT VISIT 25 MINUTES DETAILED HISTORY AND EXAM/MODERATE MEDICAL DECISION MAKING. 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 Past Psychiatric Medications fluoxetine, methadone, buspirone [facility] detox from Methadone and alcohol Examination Category Sub-Category Detail Notes Category Not es Psychiatry Appearance: well-groomed, we ll-nourished, tattoos to arm, hand ear ringing Attitude: cooperative Psychomotor activity: within normal rang e Attention: good Degree of awareness of surroundings: wit hin normal limits Orientation: awake, alert and ciara ented x 3 Affect / mood: appropriate, full ra nge Speech / language: appropriate pitch/mo dulation, clear and coherent, normal rate, volume, and articulation (RVR), proper grammar used Insight: good Judgement: good Thought process: intact Thought content: appropriate Perceptual disorders: no perceptual diso rder noted Suicidal ideation: none Intellectual functioning: no impairment noted Memory status: no impairment noted Delusions: no Hallucinations: no General Examination Mental Status Examination The patient presents with significant anxiety, describing it as a wave over my body. He reports feeling irritated and fatigued, particularly after returning to work following a two-month absence. The patient's mood is described as not good, with a history of chronic irritability. He experiences physical manifestations of anxiety, including leg shaking and dizziness when climbing ladders. Thought content reveals preoccupations with anxiety symptoms and their impact on daily functioning. The patient's thought process appears generally linear and goal-directed, as evidenced by his ability to describe his symptoms and respond appropriately to questions. Cognitively, he demonstrates awareness of his surroundings and can engage in conversation, suggesting intact orientation and attention. Insight appears fair, as the patient recognizes his anxiety and its effects on his life, actively seeking treatment. Judgment is somewhat impaired, as evidenced by recent use of leftover methadone and alcohol to self-medicate anxiety and sleep difficulties. Laboratory, Imaging, and Diagnostic Test Results An ADHD test was conducted on September 01. The results were consistent with ADHD, characterized by difficulties in response inhibition and maintaining consistent processing speed. The test also indicated that impulsivity is the core issue. Rating Scales An ADHD test was administered on September 01. The results were consistent with ADHD, characterized by difficulties in response inhibition and maintaining consistent processing speed. The test indicated that impulsivity is the core issue.
--- OUTSIDE RECORDS SUMMARY | 2024-09-26 17:11 | XMS_ITS | Patient Health Record ---
Author Organization [facility] [employer] Address [address] [place] [address] Care Team Providers Care Infrastructure Administrator Name Role Phone Jane Acevedo APRN Primary Care Provider UnaKaran Allen Unavailable [phone] Lalit Chandler Unavailable [phone] Tramaine Velasco Unavailable [phone] Allergies No Known Allergies Results Component Value Reference Range Notes Opiates Reviewed date:07/07/2024 05:17:44 PM Interpretation: Performing Lab:, [facility], [address] [place] [address], Director - [id number] Notes/Report: An exception occurred while processing this report and so it has incomplete data. Please contact [facility] [employer] [facility] for assistance. Noroxycodone NEGATIVE 50.0 ng/mL Not Medicated Consistent Norhydrocodone NEGATIVE 50.0 ng/mL Not Medicated Consistent Oxycodone NEGATIVE 50.0 ng/mL Not Medicated Consistent Hydromorphone NEGATIVE 50.0 ng/mL Not Medicated Consistent Hydrocodone NEGATIVE 50.0 ng/mL Not Medicated Consistent Morphine NEGATIVE 50.0 ng/mL Not Medicated Consistent Oxymorphone NEGATIVE 50.0 ng/mL Not Medicated Consistent Codeine NEGATIVE 50.0 ng/mL Not Medicated Consistent PDF Report CE_[email or web address] ON_SRC_ORU UDT Reviewed date:09/01/2024 03:20:21 PM Interpretation: Performing Lab: Notes/Report: THC n 0 - 50 ng/ml Cocaine n 0 - 300 ng/ml Amphetamine n 0 - 1000 ng/ml Buprenorphine (BUP) n 0 - 10 ng/ml Secobarbital (Bar) n 0 - 300 ng/ml Oxazepam (BZO) n 0 - 300 ng/ml 5-ruxbcqszbh-1,5-sshkegpp-3, 3-dipheny lpyrrolidine (EDDP) n 0 - 300 ng/ml Methamphetamine (MET) n 0 - 1000 ng/ml Methylenedioxymethamphetamine (MDMA) n 0 - 500 ng/ml Morphine (MOP 300/[id number]) n 0 - 300 ng/ml Methadone (MTD) n 0 - 300 ng/ml Phencyclidine (PCP) n 0 - 25 ng/ml Nortriptyline (TCA) n 0 - 1000 ng/ml Oxycodone n 0 - 300 ng/ml x n 0 - 300 ng/ml UDT Reviewed date:07/05/2024 09:37:26 AM Interpretation: Performing Lab: Notes/Report: THC N 0 - 50 ng/ml Cocaine N 0 - 300 ng/ml Amphetamine N 0 - 1000 ng/ml Buprenorphine (BUP) N 0 - 10 ng/ml Secobarbital (Bar) N 0 - 300 ng/ml Oxazepam (BZO) N 0 - 300 ng/ml 4-guwtsnmzty-6,8-dzmpxeci-6, 3-dipheny lpyrrolidine (EDDP) N 0 - 300 ng/ml Methamphetamine (MET) N 0 - 1000 ng/ml Methylenedioxymethamphetamine (MDMA) N 0 - 500 ng/ml Morphine (MOP 300/[id number]) N 0 - 300 ng/ml Methadone (MTD) P 0 - 300 ng/ml Phencyclidine (PCP) N 0 - 25 ng/ml Nortriptyline (TCA) N 0 - 1000 ng/ml Oxycodone N 0 - 300 ng/ml Reason For Referral No Information Medications Medication SIG (Take, Route, Frequency, Duration) Notes Start Date End Date Status cloNIDine HCl 0.1 MG 1 tablet Orally twice a day; Duration: 30 days As needed 08/23/2024 Active Sertraline HCl 25 MG 1 tablet daily x 7 days then 2 tablets daily x 7 days Orally see sign; Duration: 14 days 08/23/2024 Active Abilify 10 MG 0.5 tablet Orally Once a day; Duration: 30 days pt has supply Active Atomoxetine HCl 80 MG 1 capsule in the morning Orally Once a day Active Sertraline HCl 100 MG 1 tablet [...] a day; Duration: 30 days 09/18/2024 Active Social History Tobacco Use: Social History Observation Description Date Details (start date - stop date) Former Smoker NA - NA Sex Assigned At : Social History Observation Description Sex Assigned At Male Tobacco Control (Standard) Question Answer Notes Tobacco use: Former smoker How long has it been since you last smoked? 1-5 years AUDIT-C (Standard) Question Answer Notes Interpretation Positive Did you have a drink contain ing alcohol in the past year? Yes How often did you have six o r more drinks on one occasion in the past year? 2 to 3 times per week (3 points) How many drinks did you have on a typical day when you were drinking in the past year? 3 or 4 drinks (1 point) How often did you have a dri nk containing alcohol in the past year? Daily or almost daily (4 points) Problems Problem Type SNOMED Code ICD Code Onset Dates Problem Status W/U Status Risk Notes Problem Severe recurrent major depression without psychotic features (04624622) Major depressive disorder, recurrent severe without psychotic features (F33.2) Active confirmed Problem Insomnia disorder related to another mental disorder (26582082) Insomnia due to other mental disorder (F51.05) Active confirmed Problem Attention deficit hyperactivity disorder, predominantly inattentive type (disorder) (56727951) Attention and concentration deficit (R41.840) Active confirmed Problem Screening for cardiovascular system disease (773733325) Encounter for screening for cardiovascular disorders (Z13.6) Active confirmed Problem Nondependent opioid abuse in remission (787993963) Opioid abuse, in remission (F11.11) Active confirmed Problem Depression Screening (299738135) Encounter for screening for depression (Z13.31) Active confirmed Problem Generalized anxiety disorder (89804718) CRISTI (generalized anxiety disorder) (F41.1) Active confirmed Problem Attention deficit hyperactivity disorder (712911450) Attention deficit hyperactivity disorder (ADHD), unspecified ADHD type (F90.9) Active confirmed Problem Severe major depression, single episode, without psychotic features (29147420) Current severe episode of major depressive disorder without psychotic features without prior episode (F32.2) Active confirmed Problem Feeling suicidal (977796096) Passive suicidal ideations (R45.851) Active confirmed Problem Current drinker of alcohol (904504) Alcohol use (F10.90) Active confirmed Vital Signs Heart Rate 86 /min 08/23/2024 Height-cm 177.8 cm 09/18/2024 Blood pressure diastolic 83 mm Hg 09/18/2024 Weight-kg 85.73 kg 09/18/2024 Height 70 in 09/18/2024 Blood pressure systolic 119 mm Hg 09/18/2024 Weight 189 lbs 09/18/2024 BMI 27.12 kg/m2 09/18/2024 Procedures Procedure Date Ordered Date Performed Result Body Sit e ADHD Testing 07/05/2024 N/A Encounters Encounter Location Date Provider Diagnosis [facility] [address] [facility] [address] [place] [address] 09/18/2024 Tramaine Velasco Opioid abuse, in remission F11.11 ; CRISTI (generalized anxiety disorder) F41.1 ; 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.05 ; Attention and concentration deficit R41.840 and Major depressive disorder, recurrent severe without psychotic features F33.2 [facility] [address] [facility] [address] [place] [address] 07/05/2024 Karan Loredo Current severe episo de of major depressive disorder without psychotic features without prior episode F32.2 ; CRISTI (generalized anxiety disorder) F41.1 ; Difficulty concentrating R41.840 ; Encounter for screening for cardiovascular disorders Z13.6 ; Encounter for screening for depression Z13.31 ; Opioid abuse, in remission F11.11 ; Alcohol use F10.90 ; Passive suicidal ideations R45.851 and 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.05 [facility] [address] [facility] [address] [place] [address] 07/17/2024 Lalit Chandler [facility] [address] [facility] [address] [place] [address] 08/23/2024 Tramaine Velasco Encounter for screen ing for cardiovascular disorders Z13.6 ; Encounter for screening for depression Z13.31 ; Opioid abuse, in remission F11.11 ; CRISTI (generalized anxiety disorder) F41.1 ; 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.05 ; Attention and concentration deficit R41.840 and Major depressive disorder, recurrent severe without psychotic features F33.2 [facility] [address] [place] [address] 09/01/2024 Lalit Chandler Attention deficit hyperactivity disorder (ADHD), unspecified ADHD type F90.9 Assessments Encounter Date Diagnosis (ICD Code) Assessment Notes Treatment Notes Treatment Clinical Notes Section Notes 07/05/2024 CRISTI (generalized anxiety disorder) (ICD-10 - F41.1) 07/05/2024 Current severe episode of major depressive disorder without psychotic features without prior episode (ICD-10 - F32.2) SSRI/SNRI side effects discussed including but not limited to, gastric upset, nausea, vomiting, diarrhea and/or constipation, weight changes, sexual side effects including loss of libido, increased suicidal thoughts/behavi ors in children and young adults, and serotonin syndrome. Assessment and plan reviewed with patient Call for problems with medication, side effects or need for dosage change Compliance issues reviewed Discussed the risks/benefits of this medication Discussed medication side effects Return if symptoms worsen Treatment options reviewed. discussed that it can take weeks to see full therapeutic effects of psychotropic medications. discussed when to seek emergency services. discussed crisis prevention hotline [phone]. 08/23/2024 Encounter for screening for cardiovascular disorders (ICD-10 - Z13.6) 09/01/2024 Attention deficit hyperactivity disorder (ADHD), unspecified ADHD type (ICD-10 - F90.9) Interpretation of Results: The ASRS v1.1 screening is indicative of ADHD, with a score of 6 where a threshold of greater than 3 suggests clinically significant symptoms related to ADHD behaviors. Cognitive testing reveals the following patterns: Attention: The number of errors in the attention task is within typical range (percentile 15), suggesting no substantial issues with detecting correct stimuli. However, reaction time is slower than typical (percentile 88), indicating delayed processing speed when attending to stimuli. Response Inhibition: Markedly high number of errors (28 errors, percentile 98), indicating significant difficulty inhibiting incorrect responses and controlling impulsive actions. Overall reaction time is unusually fast (percentile 3), suggesting responses may be rushed and inaccurate. Elevated interference ratio also suggests increased susceptibility to distraction and reduced capacity to manage conflicting information. Sustained Attention: Commission errors and omission errors are within typical range, but slowing after errors is highly elevated (percentile 94), suggesting difficulty regaining stable focus after making mistakes. Executive Function and Planning: Planning and spatial working memory scores are within average range, indicating relatively intact ability to organize and hold information in mind when not under time pressure. Summary: This pattern is consistent with ADHD characterized by prominent difficulties in response inhibition and maintaining consistent processing speed, rather than planning or working memory deficits. Impulsivity is the core issue reflected in high errors during inhibition tasks. Non-Pharmacologic Treatment Recommendations: Cognitive Behavioral Therapy (CBT) for ADHD: Focus on impulse control, error awareness, and slowing down response tendencies. Techniques could include pause and plan strategies to break automatic impulsive patterns. Mindfulness-Based Attention Training: Practices such as short guided meditation and breath-focused exercises can improve self-regulation and reduce impulsive errors. Environmental Modification: Reduce distractions in work and home settings, use visual cues or reminders, and set up structured daily routines to minimize errors caused by hasty or unfocused behavior. Skills Training: Work on time management, task prioritization, and planning sequences of tasks with external supports like planners, apps, or coaching. Physical Exercise: Regular aerobic activity, such as brisk walking or cycling, can improve attention and executive control functions over time. Social Support: Engage family or peer support in accountability systems that encourage task completion and help regulate impulsive behavior in daily activities. It is recommended to pair these findings with a comprehensive clinical interview to confirm diagnosis and guide interventions. Neuropsychological testing is not needed. Consistent cognitive exercises aimed at improving inhibitory control and attention shifting will be beneficial. 09/18/2024 Opioid abuse, in remission (ICD-10 - F11.11) 09/18/2024 CRISTI (generalized anxiety disorder) (ICD-10 - F41.1) 08/23/2024 Opioid abuse, in remission (ICD-10 - F11.11) 08/23/2024 Encounter for screening for depression (ICD-10 - Z13.31) 07/05/2024 Difficulty concentrating (ICD-10 - R41.840) 07/05/2024 Encounter for screening for cardiovascular disorders (ICD-10 - Z13.6) 08/23/2024 CRISTI (generalized anxiety disorder) (ICD-10 - F41.1) 09/18/2024 Insomnia due to other mental disorder (ICD-10 - F51.05) 09/18/2024 Attention and concentration deficit (ICD-10 - R41.840) 08/23/2024 Insomnia due to other mental disorder (ICD-10 - F51.05) 07/05/2024 Encounter for screening for depression (ICD-10 - Z13.31) 07/05/2024 Opioid abuse, in remission (ICD-10 - F11.11) 08/23/2024 Attention and concentration deficit (ICD-10 - R41.840) 09/18/2024 Major depressive disorder, recurrent severe without psychotic features (ICD-10 - F33.2) 07/05/2024 Alcohol use (ICD-10 - F10.90) 08/23/2024 Major depressive disorder, recurrent severe without psychotic features (ICD-10 - F33.2) 07/05/2024 Passive suicidal ideations (ICD-10 - R45.851) 07/05/2024 Insomnia due to other mental disorder (ICD-10 - F51.05) 09/18/2024 Vida Boyer, adult male with history of substance [...] hydration - Follow up in 3 weeks Attention-Defic it/Hyperactivit y Disorder (ADHD) Assessment: Recent ADHD testing (September [...] efforts have been made to correct them. 07/05/2024 Other Learning About Depression Screening material was printed, Fluoxetine material was printed, Hydroxyzine material was printed Depression with Anxiety Assessment: Patient reports significant depressive symptoms including difficulty with focus and motivation. He endorses anxiety that is beginning to interfere with daily functioning and work responsibilities. Patient acknowledges passive suicidal ideation without plan or intent. Current management includes daily alcohol use for anxiety relief. Previous psychiatric care resulted in ADHD diagnosis and Concerta prescription, which patient reports improved focus but discontinued use. Patient is currently on methadone 7 mg daily for opioid use disorder maintenance. Plan: - Initiate fluoxetine (generic Prozac) for depression and anxiety - Informed patient of potential side effects - Discussed mechanism of action and expected 4-6 week onset of therapeutic effect - Recommend ngrc-alg-yuruisu supplements for sleep: - Melatonin at bedtime - Magnesium at bedtime - Offer hydroxyzine as needed for anxiety - Informed patient of potential sedation and advised against concurrent use with Benadryl - Follow-up appointment in 2-3 weeks to assess medication efficacy and side effects - Provided crisis prevention hotline number (318) and reviewed safety plan Insomnia Assessment: Patient reports difficulty maintaining sleep, waking up 2 times per night on average. 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 Sleep disturbances have been ongoing for approximately 2 years. Insomnia is likely secondary to depression and anxiety. Plan: - Recommend vowk-zwz-aluxgku supplements: - Melatonin at bedtime - Magnesium at bedtime -encouraged sleep hygiene. - Address underlying depression and anxiety with fluoxetine as outlined above Possible ADHD Assessment: Patient reports previous ADHD diagnosis by Dr. Louis with positive response to Concerta, which he has since discontinued. Current symptoms include difficulty focusing and being easily distracted by thoughts. Given the lack of progress notes from the previous provider, further evaluation is necessary to confirm the diagnosis. Plan: - Schedule computer-based ADHD test for diagnostic confirmation - Refer to Terrance (provider upstairs) for potential controlled substance management in approximately 6 weeks, pending ADHD test results Alcohol Use Assessment: Patient reports daily beer consumption to manage anxiety, though denies drinking to intoxication. This represents a maladaptive coping mechanism for anxiety symptoms. Plan: - Initiate fluoxetine, which may help reduce alcohol cravings in addition to treating depression and anxiety - Educate on risks of combining alcohol with prescribed medications - Monitor alcohol use at follow-up appointments Opioid Use Disorder (in remission) Assessment: Patient has a history of opioid use disorder, currently maintained on methadone 7 mg daily. He reports no recent opiate abuse. Plan: - Continue current methadone maintenance therapy (7 mg daily) - Follow-up with Terrance (provider upstairs) in approximately 6 weeks for ongoing management of controlled substances The note is transcribed using speech recognition software. It is a reflection of a visit with the patient. It might have some inaccuracy, including medication names and transcribing errors, though efforts have been made to correct them. 08/23/2024 Other recommend counseling Tj Boyer, 44-year-old male with history of polysubstance abuse, presenting with anxiety, depression, and possible ADHD symptoms after recent detoxification from methadone and alcohol. Polysubstance Use Disorder Assessment: Patient reports a long history of substance abuse, including alcohol use since teenage years, progressing to daily drinking until one month ago. Opiate use history includes both prescription opioids and heroin, with recent methadone maintenance. Patient completed a 32-day inpatient detoxification program at [facility], and reports 34 days of sobriety from all substances. Current symptoms include restlessness, cognitive clouding, and racing thoughts, which may be related to post-acute withdrawal syndrome. Plan: - Continue current sobriety - Recommend ongoing substance abuse treatment and support - Consider referral for individual counseling to address underlying issues and maintain sobriety Generalized Anxiety Disorder Assessment: Patient reports longstanding anxiety symptoms, which have worsened in recent years, particularly during methadone tapering. Symptoms include severe anxiety, fatigue, and physical restlessness. Patient also reports obsessive-compulsive tendencies (e.g., need for volumes to be divisible by five). No reported hallucinations or paranoia, though occasional visual illusions noted. Plan: - Start Zoloft (sertraline) - 25 mg PO daily for 1 week - Increase to 50 mg PO daily for 1 week - Then increase to 100 mg PO daily - Start clonidine 0.1 mg PO BID PRN for anxiety and restlessness - Decrease Abilify to 5 mg daily (half current dose) - Recommend counseling to address anxiety and childhood experiences Major Depressive Disorder Assessment: Patient reports symptoms consistent with depression, including low motivation and passive suicidal ideation (primarily when drinking). No history of suicide attempts. Depression appears to be comorbid with anxiety and possibly exacerbated by recent substance withdrawal. Plan: - Start Zoloft (sertraline) as outlined above for anxiety, which will also target depressive symptoms - Encourage counseling to address depressive symptoms and underlying issues - Monitor for suicidal ideation and provide crisis resources if needed Attention-Deficit/Hy peractivity Disorder (ADHD) Assessment: Patient reports prior ADHD diagnosis and treatment with Concerta. Current symptoms include difficulty focusing, restlessness, and racing thoughts. However, these symptoms may be confounded by recent substance withdrawal and anxiety. Further evaluation is needed to confirm ADHD diagnosis. Plan: - Schedule ADHD testing - Continue Strattera (dose not specified) - Follow up after ADHD testing to review results and adjust treatment plan as needed Insomnia Assessment: Patient reports fragmented sleep with frequent awakenings every couple of hours. This sleep disturbance has been present for the past five years and coincides with the onset of increased anxiety symptoms. 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 This occupational disruption may be related to recent substance abuse treatment and ongoing mental health concerns. Plan: - Discuss shkhbg-it-bfdh plans at follow-up appointment - Consider occupational therapy referral if needed the note is transcribed using speech recognition software. It is a reflection of a visit with the patient. It might have some inaccuracy, including medication names and transcribing errors, though efforts have been made to correct them. Plan Of Treatment Pending Test Test Name Order Date ADHD Testing 07/05/2024 Future Test Test Name Order Date ADHD Testing 08/23/2024 Insurance Providers Payer Name Payer Address Payer Phone Subscriber Number Group Number Insured Name Patient Relationship to Insured Coverage Start Date Coverage End Date [facility] TONE [id number] BRIANA LIAO [id number] Tj Boyer Self - patient is the insured Medical (General) History Medical History History ICD Code Past Psychiatric History: An xiety Disorder,Panic Disorder,Major Depressive Episode abdominal aortic aneurysm: No atrial fibrillation: No chronic fatigue syndrome: Yes essential tremor: No hyperlipidemia: No hypertension: No Parkinson's disease: No restless leg syndrome: Yes stroke: No subdural hematoma: No type 1 diabetes mellitus: No type 2 diabetes mellitus: No vitamin B12 deficiency: No vitamin D deficiency: No
--- OUTSIDE RECORDS SUMMARY | 2024-09-26 17:11 | XMS_ITS | Continuity of Care Document ---
Author Organization [facility] Address [address] [place] [address] [address] [place] [address] Phone Care Team Providers Care Milling Supervisor Name Role Phone Mirza OD, Lobito Unavailable Unavailable Procedures Procedure Date Office/outpatient Visit, New Advance Directives Directive Yes / No Effective Date File Name No Information Encounters Encounter Description Practice Location Reason(s) For Visit Diagnoses Date Provider Providers Copied on Encounter Office/outpat ient Visit, [facility], [address] [place] [address] [address], [place], [place], [id number], [place] tel:[phone] [facility] [place] No Information July-0 7-200 8 Mirza OD Lobito. [address] [facility] [place] , [address], [place], [address], [place]. tel:[phone] Family History Family Member Type Diagnosis Age At Onset No Information Payers Payer name Insurance type Covered republican ID Authoriza tion(s) No Information Social History Type Description Quantity Date Captured Comments Sex Male Smoking Status No Information Chief Complaint And Reason For Visit No Information Reason For Referral Reason For Referral No Information History Of Present Illness Encounter Date Complaint History Of Prese nt Illness No Information Functional Status Date Functional Assessmen t No Information Instructions Date Instruction Additional Infor mation No Information Assessments Type Assessment Date No Information Patient Care Teams Name Effective Dates (start - stop) Status Members No Information
[2024-09-26 17:31] LABS: Hematocrit 48.5 % (42.0-52.0); Hemoglobin 17.0 g/dL (14.0-18.0); Immature Granulocyte Percent A 0.3 % (0-0.5); Lymphocytes Absolute Auto 2.70 K/mm3 (0.9-3.2); Mean Corpuscular HGB Conc 35.1 g/dl (32-36); Mean Corpuscular Hemoglobin 29.7 pg (26-34); Mean Corpuscular Volume 84.8 fl (80-100); Nucleated Red Blood Cells Absolute Auto 0.000 K/mm3 (0.0-0.012); Nucleated Red Blood Cells Perc 0.0 % (0.0-0.2); Platelet Count Result 230 k/mm3 (150-375); Red Blood Count 5.72 M/mm3 (4.6-6.20); White Blood Count 7.1 K/mm3 (4.5-10.0)
[2024-09-26] MEDS: LACTATED RINGERS 1,000 ML 999 ML IV CONT (17:36)
[2024-09-26] MEDS: LORazepam (*CRX) 1 MG TABLET PO (17:36)
--- NOTE | 2024-09-26 17:43 | ED_ITS ---
HPI - General Adult General Chief complaint: Alcohol <Valeriano Sprague MD - Last Filed: 09/29/24 06:56> Stated complaint: ETOH <Valeriano Sprague MD - Last Filed: 09/29/24 06:56> Time Seen by Provider: 09/26/24 16:58 <Valeriano Sprague MD - Last Filed: 09/29/24 06:56> History of Present Illness HPI narrative: 44-year-old male presents emergency department for evaluation for depression anxiety and alcohol intoxication. Patient does report having severe severe severe anxiety. Patient states that the anxiety worsened once he stopped taking methadone. Patient states he does drink daily in order to control the anxiety. Patient's he was recently started on quetiapine and sertraline but these are not controlling his anxiety. Patient presents to the emergency department highly intoxicated. Patient states he has not had follow-up with a psychiatrist or the counselor. Patient is reports suicidal ideation. <Valeriano Sprague MD - Last Filed: 09/29/24 06:56> Related Data Home medications: Home Medications ?Medication ?Instructions ?Recorded ?Confirmed ?Last Taken ?Type propranolol 10 mg tablet 10 mg PO Q12H 09/26/24 09/26/24 Unknown History quetiapine 50 mg tablet 50 mg PO BID 09/26/24 09/26/24 Unknown History sertraline 100 mg tablet 100 mg PO DAILY 09/26/24 09/26/24 Unknown History <Valeriano Sprague MD - Last Filed: 09/29/24 06:56> Allergies/adverse reactions: Allergies Allergy/AdvReac Type Severity Reaction Status Date / Time No Known Allergies Allergy Unknown Verified 09/26/24 17:35 <Valeriano Sprague MD - Last Filed: 09/29/24 06:56> Review of Systems 2 Review of Systems: All systems reviewed & are unremarkable except as noted in HPI and below <Valeriano Sprague MD - Last Filed: 09/29/24 06:56> [facility] Family History Family History: Family History Father Alcoholism Hypertension Mother Afib Brain aneurysm Grandparent Alcoholism Heart attack <Valeriano Sprague MD - Last Filed: 09/29/24 06:56> Social History Social History: Social History Smoking status: Former smoker Tobacco type: e-cigarettes/vaping Alcohol intake: current Drinks per week: 20 Substance use: never Substance use type: painkillers Gender identity (if verbalized by the patient): Male <Valeriano Sprague MD - Last Filed: 09/29/24 06:56> Exam 2 Narrative: APPEARANCE: Highly intoxicated HEAD: normocephalic, atraumatic. EYES: PERRLA/EOMI, conjunctivae clear. NOSE: Normal no drainage EARS:TMS clear with good light reflex. THROAT: Pharynx clear, no exudate. NECK: Supple. No adenopathy, no masses. RESPIRATORY: Airway patent, respirations nonlabored. Clear to auscultation bilaterally, no rales, rhonchi, wheezing. CARDIOVASCULAR: Regular rate and rhythm without murmurs rubs or gallops. ABDOMINAL: Soft, nontender, nondistended, normal bowel sounds MUSCULOSKELETAL: Moves all extremities. Strength/ROM intact, No edema, No calf tenderness. NEURO: Alert. Cranial nerves II through XII intact. Good gait. Good coordination SKIN: Warm, dry. Normal Color PSYCHIATRIC: Anxious and tearful <Valeriano Sprague MD - Last Filed: 09/29/24 06:56> Course Course Emergency Course: Patient care signed over by previous provider. Patient has a history of uncontrolled anxiety. He did get her several doses of benzodiazepine therapy here. Patient is metabolically sober during repeat evaluations. States he feels better but wishes to talk to the crisis team for discussion about his anxiety. He has a history of some alcohol withdrawal be a minor but does not feel like he is going through any withdrawal during my assessment. He states his anxiety is out of control and that is why he drinks. Patient signed over to oncoming ER physician pending discussion with crisis for final disposition likely discharge with resources. Prior to sign-out patient was evaluated by the crisis team who recommended safety plan and discharge home. Discharge instructions provided and he was safe for discharge at this time. <Binh Dumont MD - Last Filed: 09/27/24 07:18> Vital Signs Vital signs: Vital Signs Temperature 97.8 F 09/26/24 16:48 Pulse Rate 111 H 09/26/24 16:48 Respiratory Rate 18 09/26/24 16:48 Blood Pressure 148/94 H 09/26/24 16:48 Pulse Oximetry 92 09/26/24 16:48 Oxygen Delivery Room Air 09/26/24 16:48 Temperature 97.8 F 09/26/24 16:48 Pulse Rate 98 09/27/24 07:33 Respiratory Rate 20 09/27/24 07:33 Blood Pressure 154/100 H 09/27/24 07:33 Pulse Oximetry 98 09/27/24 07:33 Oxygen Delivery Room Air 09/26/24 16:48 <Valeriano Sprague MD - Last Filed: 09/29/24 06:56> Vital Signs Temperature 97.8 F 09/26/24 16:48 Pulse Rate 111 H 09/26/24 16:48 Respiratory Rate 18 09/26/24 16:48 Blood Pressure 148/94 H 09/26/24 16:48 Pulse Oximetry 92 09/26/24 16:48 Oxygen Delivery Room Air 09/26/24 16:48 Temperature 97.8 F 09/26/24 16:48 Pulse Rate 98 09/27/24 07:33 Respiratory Rate 20 09/27/24 07:33 Blood Pressure 154/100 H 09/27/24 07:33 Pulse Oximetry 98 09/27/24 07:33 Oxygen Delivery Room Air 09/26/24 16:48 <Binh Dumont MD - Last Filed: 09/27/24 07:18> Medical Decision Making MDM Narrative Medical decision making narrative: 44-year-old male presents emergency department for evaluation complaining of uncontrolled anxiety. Patient is highly intoxicated. Patient's blood alcohol was 328 upon arrival. He will have a recheck at 2:00 a.m.. Do recommend the patient be evaluated by crisis. Patient would benefit from psychiatric and psychological evaluation. <Valeriano Sprague MD - Last Filed: 09/29/24 06:56> Vital Signs Vital Signs: Vital Signs Temperature 97.8 F 09/26/24 16:48 Pulse Rate 111 H 09/26/24 16:48 Respiratory Rate 18 09/26/24 16:48 Blood Pressure 148/94 H 09/26/24 16:48 Pulse Oximetry 92 09/26/24 16:48 Oxygen Delivery Room Air 09/26/24 16:48 Temperature 97.8 F 09/26/24 16:48 Pulse Rate 98 09/27/24 07:33 Respiratory Rate 20 09/27/24 07:33 Blood Pressure 154/100 H 09/27/24 07:33 Pulse Oximetry 98 09/27/24 07:33 Oxygen Delivery Room Air 09/26/24 16:48 <Valeriano Sprague MD - Last Filed: 09/29/24 06:56> Vital Signs Temperature 97.8 F 09/26/24 16:48 Pulse Rate 111 H 09/26/24 16:48 Respiratory Rate 18 09/26/24 16:48 Blood Pressure 148/94 H 09/26/24 16:48 Pulse Oximetry 92 09/26/24 16:48 Oxygen Delivery Room Air 09/26/24 16:48 Temperature 97.8 F 09/26/24 16:48 Pulse Rate 98 09/27/24 07:33 Respiratory Rate 20 09/27/24 07:33 Blood Pressure 154/100 H 09/27/24 07:33 Pulse Oximetry 98 09/27/24 07:33 Oxygen Delivery Room Air 09/26/24 16:48 <Binh Dumont MD - Last Filed: 09/27/24 07:18> Lab Data Result diagrams: 09/26/24 17:25 09/26/24 17:25 <Valeriano Sprague MD - Last Filed: 09/29/24 06:56> Labs: Lab Results 09/26/24 09/26/24 09/27/24 Range/Units 17:25 17:37 02:14 WBC 7.1 (4.5-10.0) K/mm3 RBC 5.72 (4.6-6.20) M/mm3 Hgb 17.0 (14.0-18.0) g/dL Hct 48.5 (42.0-52.0) % MCV 84.8 (80-100) fl MCH 29.7 (26-34) pg MCHC 35.1 (32-36) g/dl RDW 12.9 (11.5-14.5) % Plt Count 230 (150-375) k/mm3 MPV 10.3 (7.4-10.4) fl Immature Gran % (Auto) 0.3 (0-0.5) % Neut % (Auto) 51.4 (45.5-73.1) % Lymph % (Auto) 37.9 (18.3-44.2) % [place] % (Auto) 7.6 (2.6-8.5) % Eos % (Auto) 1.8 (0-4.4) % Baso % (Auto) 1.0 (0.2-1.2) % Lymph # (Auto) 2.70 (0.9-3.2) K/mm3 [place] # (Auto) 0.5 (0.1-0.6) K/mm3 Eos # (Auto) 0.1 (0-0.3) K/mm3 Baso # (Auto) 0.1 (0.0-0.1) K/mm3 Abs Immat Gran (auto) 0.02 (0.00-0.031) K/mm3 Absolute Neuts (auto) 3.7 (1.3-6.7) K/mm3 Absolute Nucleated RBC 0.000 (0.0-0.012) K/mm3 Nucleated RBC % 0.0 (0.0-0.2) % Sodium 143 (137-145) mmol/L Potassium 3.5 (3.4-5.0) mmol/L Chloride 97 L (98-107) mmol/L Carbon Dioxide 30 (22-30) mmol/L Anion Gap 16 H (4-12) mmol/L BUN 6 L (9-20) mg/dL Creatinine 0.73 (0.7-1.3) mg/dL Estim Creat Clear Calc 107 ml/min Estimated GFR > 60 (59 - ) Glucose 118 H (65-110) mg/dL Calcium 8.5 (8.4-10.2) mg/dL Total Bilirubin 0.5 (0.2-1.3) mg/dL AST 32 (17-59) U/L ALT 20 (6-50) U/L Alkaline Phosphatase 85 (38-126) U/L Total Protein 8.0 (6.3-8.2) g/dL Albumin 4.4 (3.5-5.1) g/dL TSH 0.410 L (0.465-4.680) uIU/mL Urine Color Yellow (Yellow) Urine Appearance Cloudy H (Clear) Urine pH 6.5 (5.0-9.0) Ur Specific [place] 1.014 (1.001-1.035) Urine Protein 1+ H (Negative) mg/dL Urine Glucose (UA) Negative (Negative) mg/dL Urine Ketones Trace H (Negative) mg/dL Ur Blood (Man) Negative (Negative) Urine Nitrate Negative (Negative) Urine Bilirubin Negative (Negative) Urine Urobilinogen 1.0 (<2.0) mg/dL Leukocyte Esterase Rfl Negative (Negative) MILLICENT/UL Urine RBC 0-2 (0-2) /hpf Urine WBC 0-5 (0-3) /hpf Ur Squamous Epith Cells None seen (Few) /hpf Urine Bacteria None seen /hpf Urine Casts 3-5 Salicylates < 1.0 L (2-20) mg/dL Urine Opiates Screen Negative (Negative) Urine Methadone Screen Negative (Negative) Acetaminophen < 10 L (10-30) ug/mL Ur Barbiturates Screen Negative (Negative) Ur Phencyclidine Scrn Negative (Negative) Ur Amphetamine Screen Negative (Negative) U Benzodiazepines Scrn Negative (Negative) Urine Cocaine Screen Negative (Negative) U Cannabinoids Screen Negative (Negative) Ethyl Alcohol 328 H* 102 (<10) mg/dL 09/27/24 Range/Units 04:39 WBC (4.5-10.0) K/mm3 RBC (4.6-6.20) M/mm3 Hgb (14.0-18.0) g/dL Hct (42.0-52.0) % MCV (80-100) fl MCH (26-34) pg MCHC (32-36) g/dl RDW (11.5-14.5) % Plt Count (150-375) k/mm3 MPV (7.4-10.4) fl Immature Gran % (Auto) (0-0.5) % Neut % (Auto) (45.5-73.1) % Lymph % (Auto) (18.3-44.2) % [place] % (Auto) (2.6-8.5) % Eos % (Auto) (0-4.4) % Baso % (Auto) (0.2-1.2) % Lymph # (Auto) (0.9-3.2) K/mm3 [place] # (Auto) (0.1-0.6) K/mm3 Eos # (Auto) (0-0.3) K/mm3 Baso # (Auto) (0.0-0.1) K/mm3 Abs Immat Gran (auto) (0.00-0.031) K/mm3 Absolute Neuts (auto) (1.3-6.7) K/mm3 Absolute Nucleated RBC (0.0-0.012) K/mm3 Nucleated RBC % (0.0-0.2) % Sodium (137-145) mmol/L Potassium (3.4-5.0) mmol/L Chloride (98-107) mmol/L Carbon Dioxide (22-30) mmol/L Anion Gap (4-12) mmol/L BUN (9-20) mg/dL Creatinine (0.7-1.3) mg/dL Estim Creat Clear Calc ml/min Estimated GFR (59 - ) Glucose (65-110) mg/dL Calcium (8.4-10.2) mg/dL Total Bilirubin (0.2-1.3) mg/dL AST (17-59) U/L ALT (6-50) U/L Alkaline Phosphatase (38-126) U/L Total Protein (6.3-8.2) g/dL Albumin (3.5-5.1) g/dL TSH (0.465-4.680) uIU/mL Urine Color (Yellow) Urine Appearance (Clear) Urine pH (5.0-9.0) Ur Specific [place] (1.001-1.035) Urine Protein (Negative) mg/dL Urine Glucose (UA) (Negative) mg/dL Urine Ketones (Negative) mg/dL Ur Blood (Man) (Negative) Urine Nitrate (Negative) Urine Bilirubin (Negative) Urine Urobilinogen (<2.0) mg/dL Leukocyte Esterase Rfl (Negative) MILLICENT/UL Urine RBC (0-2) /hpf Urine WBC (0-3) /hpf Ur Squamous Epith Cells (Few) /hpf Urine Bacteria /hpf Urine Casts Salicylates (2-20) mg/dL Urine Opiates Screen (Negative) Urine Methadone Screen (Negative) Acetaminophen (10-30) ug/mL Ur Barbiturates Screen (Negative) Ur Phencyclidine Scrn (Negative) Ur Amphetamine Screen (Negative) U Benzodiazepines Scrn (Negative) Urine Cocaine Screen (Negative) U Cannabinoids Screen (Negative) Ethyl Alcohol < 10 (<10) mg/dL <Valeriano Sprague MD - Last Filed: 09/29/24 06:56> Lab Results 09/26/24 09/26/24 09/27/24 Range/Units 17:25 17:37 02:14 WBC 7.1 (4.5-10.0) K/mm3 RBC 5.72 (4.6-6.20) M/mm3 Hgb 17.0 (14.0-18.0) g/dL Hct 48.5 (42.0-52.0) % MCV 84.8 (80-100) fl MCH 29.7 (26-34) pg MCHC 35.1 (32-36) g/dl RDW 12.9 (11.5-14.5) % Plt Count 230 (150-375) k/mm3 MPV 10.3 (7.4-10.4) fl Immature Gran % (Auto) 0.3 (0-0.5) % Neut % (Auto) 51.4 (45.5-73.1) % Lymph % (Auto) 37.9 (18.3-44.2) % [place] % (Auto) 7.6 (2.6-8.5) % Eos % (Auto) 1.8 (0-4.4) % Baso % (Auto) 1.0 (0.2-1.2) % Lymph # (Auto) 2.70 (0.9-3.2) K/mm3 [place] # (Auto) 0.5 (0.1-0.6) K/mm3 Eos # (Auto) 0.1 (0-0.3) K/mm3 Baso # (Auto) 0.1 (0.0-0.1) K/mm3 Abs Immat Gran (auto) 0.02 (0.00-0.031) K/mm3 Absolute Neuts (auto) 3.7 (1.3-6.7) K/mm3 Absolute Nucleated RBC 0.000 (0.0-0.012) K/mm3 Nucleated RBC % 0.0 (0.0-0.2) % Sodium 143 (137-145) mmol/L Potassium 3.5 (3.4-5.0) mmol/L Chloride 97 L (98-107) mmol/L Carbon Dioxide 30 (22-30) mmol/L Anion Gap 16 H (4-12) mmol/L BUN 6 L (9-20) mg/dL Creatinine 0.73 (0.7-1.3) mg/dL Estim Creat Clear Calc 107 ml/min Estimated GFR > 60 (59 - ) Glucose 118 H (65-110) mg/dL Calcium 8.5 (8.4-10.2) mg/dL Total Bilirubin 0.5 (0.2-1.3) mg/dL AST 32 (17-59) U/L ALT 20 (6-50) U/L Alkaline Phosphatase 85 (38-126) U/L Total Protein 8.0 (6.3-8.2) g/dL Albumin 4.4 (3.5-5.1) g/dL TSH 0.410 L (0.465-4.680) uIU/mL Urine Color Yellow (Yellow) Urine Appearance Cloudy H (Clear) Urine pH 6.5 (5.0-9.0) Ur Specific [place] 1.014 (1.001-1.035) Urine Protein 1+ H (Negative) mg/dL Urine Glucose (UA) Negative (Negative) mg/dL Urine Ketones Trace H (Negative) mg/dL Ur Blood (Man) Negative (Negative) Urine Nitrate Negative (Negative) Urine Bilirubin Negative (Negative) Urine Urobilinogen 1.0 (<2.0) mg/dL Leukocyte Esterase Rfl Negative (Negative) MILLICENT/UL Urine RBC 0-2 (0-2) /hpf Urine WBC 0-5 (0-3) /hpf Ur Squamous Epith Cells None seen (Few) /hpf Urine Bacteria None seen /hpf Urine Casts 3-5 Salicylates < 1.0 L (2-20) mg/dL Urine Opiates Screen Negative (Negative) Urine Methadone Screen Negative (Negative) Acetaminophen < 10 L (10-30) ug/mL Ur Barbiturates Screen Negative (Negative) Ur Phencyclidine Scrn Negative (Negative) Ur Amphetamine Screen Negative (Negative) U Benzodiazepines Scrn Negative (Negative) Urine Cocaine Screen Negative (Negative) U Cannabinoids Screen Negative (Negative) Ethyl Alcohol 328 H* 102 (<10) mg/dL 09/27/ Range/Units 04:39 WBC (4.5-10.0) K/mm3 RBC (4.6-6.20) M/mm3 Hgb (14.0-18.0) g/dL Hct (42.0-52.0) % MCV (80-100) fl MCH (26-34) pg MCHC (32-36) g/dl RDW (11.5-14.5) % Plt Count (150-375) k/mm3 MPV (7.4-10.4) fl Immature Gran % (Auto) (0-0.5) % Neut % (Auto) (45.5-73.1) % Lymph % (Auto) (18.3-44.2) % [place] % (Auto) (2.6-8.5) % Eos % (Auto) (0-4.4) % Baso % (Auto) (0.2-1.2) % Lymph # (Auto) (0.9-3.2) K/mm3 [place] # (Auto) (0.1-0.6) K/mm3 Eos # (Auto) (0-0.3) K/mm3 Baso # (Auto) (0.0-0.1) K/mm3 Abs Immat Gran (auto) (0.00-0.031) K/mm3 Absolute Neuts (auto) (1.3-6.7) K/mm3 Absolute Nucleated RBC (0.0-0.012) K/mm3 Nucleated RBC % (0.0-0.2) % Sodium (137-145) mmol/L Potassium (3.4-5.0) mmol/L Chloride (98-107) mmol/L Carbon Dioxide (22-30) mmol/L Anion Gap (4-12) mmol/L BUN (9-20) mg/dL Creatinine (0.7-1.3) mg/dL Estim Creat Clear Calc ml/min Estimated GFR (59 - ) Glucose (65-110) mg/dL Calcium (8.4-10.2) mg/dL Total Bilirubin (0.2-1.3) mg/dL AST (17-59) U/L ALT (6-50) U/L Alkaline Phosphatase (38-126) U/L Total Protein (6.3-8.2) g/dL Albumin (3.5-5.1) g/dL TSH (0.465-4.680) uIU/mL Urine Color (Yellow) Urine Appearance (Clear) Urine pH (5.0-9.0) Ur Specific [place] (1.001-1.035) Urine Protein (Negative) mg/dL Urine Glucose (UA) (Negative) mg/dL Urine Ketones (Negative) mg/dL Ur Blood (Man) (Negative) Urine Nitrate (Negative) Urine Bilirubin (Negative) Urine Urobilinogen (<2.0) mg/dL Leukocyte Esterase Rfl (Negative) MILLICENT/UL Urine RBC (0-2) /hpf Urine WBC (0-3) /hpf Ur Squamous Epith Cells (Few) /hpf Urine Bacteria /hpf Urine Casts Salicylates (2-20) mg/dL Urine Opiates Screen (Negative) Urine Methadone Screen (Negative) Acetaminophen (10-30) ug/mL Ur Barbiturates Screen (Negative) Ur Phencyclidine Scrn (Negative) Ur Amphetamine Screen (Negative) U Benzodiazepines Scrn (Negative) Urine Cocaine Screen (Negative) U Cannabinoids Screen (Negative) Ethyl Alcohol < 10 (<10) mg/dL <Binh Dumont MD - Last Filed: 09/27/24 07:18> Discharge Plan Discharge Clinical Impression: Anxiety, Alcohol intoxication <Valeriano Sprague MD - Last Filed: 09/29/24 06:56> Patient Disposition: Home <Valeriano Sprague MD - Last Filed: 09/29/24 06:56> Condition: Stable <Valeriano Sprague MD - Last Filed: 09/29/24 06:56> Instructions: Abuse of Alcohol (ED), Anxiety (ED) <Valeriano Sprague MD - Last Filed: 09/29/24 06:56> Additional Instructions: Follow-up with your primary care provider. Return with any emergent concerns. Refrain from significant amounts of alcohol intake. <Valeriano Sprague MD - Last Filed: 09/29/24 06:56> Patient Language: Tamazight <Valeriano Sprague MD - Last Filed: 09/29/24 06:56> Prescriptions: No Action chlordiazepoxide HCl 25 mg capsule 25 mg PO Q6-12H PRN (Reason: alcohol withdrawal) Qty: 30 0RF Rx Instructions: Take 1 tabs PO q2-4 hours on day 1; 1 tab PO q4h on day 2; 1 tab PO q6h on day 3; 1 tab PO q12 on day 4; 1 tab at night on day 5. quetiapine 50 mg tablet 50 mg PO BID sertraline 100 mg tablet 100 mg PO DAILY propranolol 10 mg tablet 10 mg PO Q12H <Valeriano Sprague MD - Last Filed: 09/29/24 06:56> Follow-up/Referrals: Jane Acevedo APRN [Primary Care Provider] - <Valeriano Sprague MD - Last Filed: 09/29/24 06:56> Time of Disposition: 07:18 <Valeriano Sprague MD - Last Filed: 09/29/24 06:56> 07:18 <Binh Dumont MD - Last Filed: 09/27/24 07:18>
[2024-09-26 17:45] VITALS: BP 137/75; PULSE 104; RESP 20; O2SAT 97
[2024-09-26 17:49] LABS: Add Urine Microscopic? YES; Appearance Urine Cloudy (Clear); Glucose Urine UA Negative (Negative); Leukocyte Esterase Ur Negative LEU/UL (Negative); Nitrate Urine Negative (Negative); Specific Grav Ur 1.014 (1.001-1.035)
[2024-09-26 17:55] LABS: Alanine Aminotransferase 20 U/L (6-50); Albumin Level 4.4 g/dL (3.5-5.1); Alkaline Phosphatase 85 U/L (38-126); Anion Gap 16 mmol/L (4-12); Aspartate Amino Transferase 32 U/L (17-59); Bilirubin,Total 0.5 mg/dL (0.2-1.3); Blood Urea Nitrogen 6 mg/dL (9-20); Calcium 8.5 mg/dL (8.4-10.2); Carbon Dioxide 30 mmol/L (22-30); Chloride 97 mmol/L (98-107); Estimated CRCL calculation 107 ml/min; Estimated Glomerular Filt Rate > 60; Glucose 118 mg/dL (65-110); Potassium 3.5 mmol/L (3.4-5.0); Sodium 143 mmol/L (137-145); Total Protein 8.0 g/dL (6.3-8.2)
[2024-09-26 18:07] LABS: Cannabinoid Screen Urine Negative (Negative)
[2024-09-26 18:21] LABS: Acetaminophen < 10 ug/mL (10-30); Salicylate < 1.0 mg/dL (2-20)
[2024-09-26 18:31] LABS: Thyroid Stimulating Hormone 0.410 uIU/mL (0.465-4.680)
[2024-09-26] MEDS: LORazepam INJ (*CRX) 2 MG/ML VIAL 1 MG IV PUSH (18:38)
--- NOTE | 2024-09-26 18:41 | PC.NURSE ---
when pt arrived to ED, pt belongings were placed in a bag and locked up in the cabinets with a pt retail sales professional it. pt had his shoes, wallet, keys, medications, and a piece of mail with him. no phone was noted
[2024-09-27] MEDS: LORazepam (*CRX) 1 MG TABLET PO (02:22)
[2024-09-27 03:39] VITALS: BP 141/89; PULSE 95; RESP 16; O2SAT 97
--- NOTE | 2024-09-27 03:39 | PC.NURSE ---
This RN re-evaluated pt's SI. Pt denies SI, but reports feeling anxious. This RN observed obvious tremors in HERMES arms.
[2024-09-27] MEDS: diazePAM INJ (*CRX) 10 MG/2 ML SYRINGE 5 MG IV PUSH (03:55)
--- NOTE | 2024-09-27 05:06 | PC.NURSE ---
Pt has been medically cleared for evaluation by Crisis. Pt denies SI at this time but reports severe anxiety. Pt states that he is a daily drinker to cope with anxiety. Spoke with Karly at Crisis and someone will be out to see the pt soon.
[2024-09-27 07:33] VITALS: BP 154/100; PULSE 98; RESP 20; O2SAT 98
== END 2024-09-27 07:41 | disposition home or self-care (01) ==
PROVIDERS: Student in an Organized Health Care Education/Training Program; Emergency Provider Emergency Medicine; PCP Nurse Practitioner Family
DX: F41.9 Anxiety disorder, unspecified (principal); F10.129 Alcohol abuse with intoxication, unspecified; Y90.8 Blood alcohol level of 240 mg/100 ml or more; F32.A Depression, unspecified; Z87.891 Personal history of nicotine dependence; Z79.899 Other long term (current) drug therapy
CPT/HCPCS: 36415; 80053; 80143; 80179; 80307; 81001; 82077; 84443; 85025; 96361; 96374; 99284; A9270; J2060; J3360; J7120